=== PATIENT | male | born 1975 | race Caucasian/White ===

== ENCOUNTER 2024-07-07 07:16 | Emergency (ER) | payer OTHER ==
[~2024-07-07] VITALS: Ht 182.9 cm; Wt 109.3 kg
[2024-07-07 07:25] VITALS: BP 125/78; PULSE 66; RESP 15; TEMP 98.6; O2SAT 98
[2024-07-07 08:04] VITALS: BP 125/78; PULSE 66; RESP 15; TEMP 98.6; O2SAT 98
== END 2024-07-07 08:04 | disposition home or self-care (01) ==
LOC: MED 07:16
DX: S01.111A Laceration without foreign body of right eyelid and periocular area, initial encounter (principal); W22.8XXA Striking against or struck by other objects, initial encounter; Y92.89 Other specified places as the place of occurrence of the external cause; Y93.89 Activity, other specified; Y99.8 Other external cause status
CPT/HCPCS: 90471; 90715; 99283

== ENCOUNTER 2024-07-15 07:10 | Emergency (ER) | payer OTHER ==
[~2024-07-15] VITALS: Ht 182.9 cm; Wt 113.4 kg
[2024-07-15 07:29] VITALS: BP 122/77; PULSE 59; RESP 18; TEMP 98.2; O2SAT 98
== END 2024-07-15 08:14 | disposition home or self-care (01) ==
LOC: MED 07:10
DX: S01.111D Laceration without foreign body of right eyelid and periocular area, subsequent encounter (principal); Z48.00 Encounter for change or removal of nonsurgical wound dressing; X58.XXXD Exposure to other specified factors, subsequent encounter
CPT/HCPCS: 99281